=== PATIENT | female | born 2000 | race Caucasian/White ===

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

== ENCOUNTER 2018-02-11 09:14 | Emergency (ER) | payer MEDICAID ==
--- NOTE | 2018-02-11 09:46 | ER Document Report ---
ED Medical Screen (RME) - General Chief Complaint: Vag Bleeding, +preg <12wks Stated Complaint: VAGINAL BLEEDING Time Seen by Provider: 02/11/18 09:30 Notes: RME DISCLOSURE I have seen this patient as part of a Rapid Medical Evaluation and, if applicable, placed any initially appropriate orders. The patient will be seen and fully evaluated, including a full history and physical exam, by a provider ( in Main ED or Fast Track) when a room becomes available. 17-year-old female (no prior pregnancies) here with complaints of vaginal spotting and bleeding ongoing for the past 4 days. She took 3 home tests all of which were positive. She then [facility] and had a positive test there as well. She has not had any abdominal pain back pain nausea vomiting fevers chills. She wanted to come get checked out. TRAVEL OUTSIDE OF THE [place] IN LAST 30 DAYS: No - Related Data Allergies/Adverse Reactions: No Known Allergies Allergy (Unverified 07/13/17 13:00) Past Medical History - General Last Menstrual Period: 01/08/18 - Social History Frequency of alcohol use: None Drug Abuse: Marijuana Renal/ Medical History: Denies: Hx Peritoneal Dialysis Physical Exam - Vital signs Vitals: Temp Pulse Resp BP Pulse Ox 98.3 F 95 H 16 105/69 98 02/11/18 09:25 02/11/18 09:25 02/11/18 09:25 02/11/18 09:25 02/11/18 09:25 Course - Vital Signs Vital signs: Temp Pulse Resp BP Pulse Ox 98.3 F 95 H 16 105/69 98 02/11/18 09:25 02/11/18 09:25 02/11/18 09:25 02/11/18 09:25 02/11/18 09:25
[2018-02-11 10:14] LABS: ABSOLUTE EOSINOPHILS # (AUTO) 0.5 10^3/uL (0.0-0.6); ABSOLUTE LYMPHOCYTES (AUTO) 3.2 10^3/uL (0.5-4.7); ABSOLUTE MONOCYTES (AUTO) 0.7 10^3/uL (0.1-1.4); MEAN CORPUSCULAR HGB CONC 33.8 g/dL (32.0-36.0); MONOCYTES % (AUTO) 9.2 % (3-13); TOTAL CELLS COUNTED % (AUTO) 100 %
--- NOTE | 2018-02-11 10:17 | ER Document Report ---
ED GI/ - General Chief Complaint: Vag Bleeding, +preg <12wks Stated Complaint: VAGINAL BLEEDING Time Seen by Provider: 02/11/18 09:30 Mode of Arrival: Ambulatory Information source: Patient TRAVEL OUTSIDE OF THE [place] IN LAST 30 DAYS: No - HPI Patient complains to provider of: Vaginal bleeding Notes: 02/11/18 10:15 Patient is here with complaints of vaginal bleeding. The patient states that she is approximately 5 weeks . Her last normal menstrual period was January 08. This is her first . She has had positive tests at the health department. States over the last few days she has been having some vaginal bleeding. 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 She denies any abdominal pain. She denies fever. She denies nausea, vomiting, diarrhea. No dysuria or hematuria. No vaginal discharge. No rash. No chest pain or shortness of breath. She denies any other complaints at this time. - Related Data Allergies/Adverse Reactions: No Known Allergies Allergy (Unverified 07/13/17 13:00) Past Medical History - General Last Menstrual Period: 01/08/18 - Social History Smoking Status: Former Smoker Frequency of alcohol use: None Drug Abuse: Marijuana Family History: Reviewed & Not Pertinent Patient has suicidal ideation: No Patient has homicidal ideation: No Renal/ Medical History: Denies: Hx Peritoneal Dialysis Review of Systems - Review of Systems -: Yes All other systems reviewed and negative Physical Exam - Vital signs Vitals: Temp Pulse Resp BP Pulse Ox 98.3 F 95 H 16 105/69 98 02/11/18 09:25 02/11/18 09:25 02/11/18 09:25 02/11/18 09:25 02/11/18 09:25 - Notes Notes: GENERAL: alert, cooperative, nontoxic, no distress. HEAD: normocephalic, atraumatic EYES: conjunctiva pink without discharge, no external redness or swelling. EARS: no external swelling, no external redness NOSE: atraumatic, no external swelling MOUTH/THROAT: mucous membranes moist and pink, posterior pharynx without erythema, swelling, exudate. No trismus or drooling. NECK: soft, supple, full range of motion, no meningismus. CHEST: no distress, lungs clear and equal throughout. No wheezing, rales, rhonchi. CARDIAC: regular rate and rhythm, no murmur, normal capillary refill, normal pulses. No peripheral edema noted. ABDOMEN: Soft, nontender. BACK: full range of motion, no CVA tenderness. EXTREMITIES: full range of motion of all extremities. No redness, no swelling. NEURO: alert and oriented x 3, no focal deficits, full range of motion of all extremities. PYSCH: appropriate mood, affect. Patient is cooperative. SKIN: pink, warm, dry, no rash. : Performed with female dairy nutritionist at the bedside. No external lesions. Cervical office is closed. No blood within the vaginal vault. No discharge. No cervical motion tenderness. No adnexal tenderness or masses on bimanual exam. Course - Re-evaluation Re-evalutation: 02/11/18 11:47 Patient is nontoxic appearing with stable vitals. Patient is here with complaints of and vaginal bleeding. Last period was in the middle of December. This was her first . She has been seen at the health department and had a positive urine test but has not had an official OB visit. She started having some bleeding last week that has since essentially resolved. She was told to come to the ER to get this evaluated. She denies any abdominal pain. She has no abdominal tenderness on exam. There was no bleeding on vaginal exam and the cervical office was closed. Her beta- hCG is 24. This is extremely low. Most likely the patient has experienced a miscarriage although an ectopic cannot completely be excluded as her ultrasound did not show an intrauterine at this time. Patient is instructed to keep her follow-up appointment with the health department for reevaluation to assess the trending of her hCG. She was instructed to return the emergency department if she develops pelvic pain or has any worsening symptoms. Blood type is B+, RhoGam is not indicated. This point the patient can be discharged home with what is most likely a miscarriage. The patient's emergency department workup and current diagnosis were explained to the patient and or family. Follow-up instructions were provided. Medications if prescribed were discussed. Instructions for when to return to the emergency department including specific worrisome symptoms were discussed with the patient and/or family. - Vital Signs Vital signs: Temp Pulse Resp BP Pulse Ox 98.3 F 95 H 16 105/69 98 02/11/18 09:25 02/11/18 09:25 02/11/18 09:25 02/11/18 09:25 02/11/18 09:25 - Laboratory Result Diagrams: 02/11/18 09:53 02/11/18 09:53 Laboratory results interpreted by me: 02/11/18 02/11/18 02/11/18 09:53 09:53 09:53 Seg Neutrophils % 41.9 L Eosinophils % 6.1 H AST 45 H ALT 54 H Beta HCG, Quant 24.67 H Urine Blood LARGE H - Diagnostic Test Radiology reviewed: Image reviewed, Reports reviewed - Ultrasound shows no intrauterine . No acute abnormalities. Discharge - Discharge Clinical Impression: Threatened miscarriage in early Condition: Stable Disposition: HOME, SELF-CARE Instructions: Bleeding During Early ([facility]), Threatened Miscarriage ( [facility]) Additional Instructions: Follow-up with the health department as scheduled. Return to the emergency department or follow-up sooner for worsening pain, high fever, severe bleeding, persistent vomiting, or for any further concerns. Your hormone level today was 24. Your blood type is B+. Forms: Smoking Cessation Education
[2018-02-11 10:19] LABS: ABSOLUTE NEUT (AUTO) 3.2 10^3/uL (1.7-8.2); BASOPHILS % (AUTO) 0.5 % (0-2); EOSINOPHILS % (AUTO) 6.1 % (0-6); HEMATOCRIT 45.8 % (36.0-47.0); HEMOGLOBIN 15.5 g/dL (12.0-15.5); LYMPHOCYTES % (AUTO) 42.3 % (13-45); MEAN CORPUSCULAR HEMOGLOBIN 29.4 pg (27.0-33.4); MEAN CORPUSCULAR VOLUME 87 fl (80-97); PLATELET COUNT 371 10^3/uL (150-450); RED BLOOD COUNT 5.27 10^6/uL (3.72-5.28); RED CELL DISTRIBUTION WIDTH 13.3 % (11.5-14.0); SEGMENTED NEUTROPHILS % (AUTO) 41.9 % (42-78); WHITE BLOOD COUNT 7.7 10^3/uL (4.0-10.5)
[2018-02-11 10:25] LABS: BACTERIA (WET MOUNT) 3+ BACTERIA SEEN; RBCS (WET MOUNT) FEW RBCS SEEN; T.VAGINALIS (WET MOUNT) NO TRICHOMONAS SEEN; WBCS (WET MOUNT) FEW WBCS SEEN; YEAST (WET MOUNT) YEAST SEEN
[2018-02-11 10:37] LABS: APPEARANCE,URINE CLEAR; BILIRUBIN,URINE NEGATIVE (NEGATIVE); COLOR,URINE YELLOW; GLUCOSE, URINE NEGATIVE (NEGATIVE); KETONES,URINE NEGATIVE (NEGATIVE); LEUKOCYTE ESTERASE,URINE NEGATIVE (NEGATIVE); NITRITE,URINE NEGATIVE (NEGATIVE); PROTEIN,URINE NEGATIVE (NEGATIVE); URINE SPECIFIC GRAVITY 1.012; UROBILINOGEN,URINE NEGATIVE mg/dL (<2.0)
[2018-02-11 10:39] LABS: ALANINE AMINOTRANSFERASE 54 U/L (5-35); ALBUMIN 4.4 g/dL (3.7-5.6); ALKALINE PHOSPHATASE 89 U/L (50-135); ANION GAP 9 (5-19); ASPARTATE AMINO TRANSFERASE 45 U/L (5-30); BILIRUBIN,DIRECT 0.2 mg/dL (0.0-0.4); BILIRUBIN,TOTAL 0.2 mg/dL (0.2-1.3); BLOOD UREA NITROGEN 10 mg/dL (7-20); CALCIUM 10.2 mg/dL (8.4-10.2); CARBON DIOXIDE 30 mmol/L (22-30); CHLORIDE 106 mmol/L (98-107); GLUCOSE 90 mg/dL (75-110); SODIUM 144.6 mmol/L (137-145); TOTAL PROTEIN 7.3 g/dL (6.3-8.2)
--- NOTE | 2018-02-11 11:08 | RADIOLOGY REPORT (SQ) ---
EXAM DESCRIPTION: U/S OB TRANSVAGINAL W/O DOP COMPLETED DATE/TIME: 02/11/2018 10:47 am REASON FOR STUDY: bleeding, pos preg test; eval ectopic miscarriage COMPARISON: None. TECHNIQUE: Transvaginal static and realtime grayscale images acquired of the pelvis. Additional tony cted spectral and color Doppler images recorded. All images stored on PACs. BHCG: Pending. LIMITATIONS: None. FINDINGS: UTERUS: No visualized intrauterine . Minimal endometrial fluid. RIGHT ADNEXA: Normal ovary with normal vascular flow. No adnexal free fluid. No adnexal masses. LEFT ADNEXA: Normal ovary with normal vascular flow. No adnexal free fluid. No adnexal masses. FREE FLUID: None. OTHER: No other significant finding. IMPRESSION: NO VISUALIZED INTRA- OR EXTRAUTERINE . bHCG LEVEL TOO LOW TO EXPECT VISUALIZATION OF . ECTOPIC CANNOT BE EXCLUDED. FOLLOW-UP ULTRASOUND AND SERIAL BHCG LEVELS STRONGLY RECOMMENDED TO ACCURATELY ASSESS STATU S. TECHNICAL DOCUMENTATION: JOB ID: [id number] [employer]- All Rights Reserved Reading location - IP/workstation name: [email or web address]
[2018-02-11 11:50] LABS: CHLAM PCR NOT DETECTED (NOT DETECT); GON PCR NOT DETECTED (NOT DETECT)
[2018-02-11 11:56] VITALS: BP 108/64
== END 2018-02-11 11:53 | disposition home or self-care (01) ==
LOC: ER 09:14
DX: O20.0 Threatened abortion (principal); Z3A.01 Less than 8 weeks gestation of pregnancy; Z87.891 Personal history of nicotine dependence
CPT/HCPCS: 36415; 76817; 80053; 81001; 84702; 85025; 86900; 86901; 87210; 87491; 87591; 99284

== ENCOUNTER 2019-11-09 11:32 | Emergency (ER) | payer MEDICAID ==
[2019-11-09 11:42] VITALS: BP 121/85
--- NOTE | 2019-11-09 12:26 | ER Document Report ---
HPI - HPI Time Seen by Provider: 11/09/19 12:17 Pain Level: 2 Notes: Otherwise healthy 19-year-old female presenting with left ear pain over the last 2 to 3 days. She states she has tried putting peroxide in it to help with the pain. She also reports cough and congestion. Denies fevers. - CONSTITUTIONAL Constitutional: DENIES: Fever, Chills - EENT EENT: REPORTS: Sore Throat, Ear Pain - REPRODUCTIVE Reproductive: DENIES: : Past Medical History - General Information source: Patient - Social History Smoking Status: Never Smoker Chew tobacco use (# tins/day): No Frequency of alcohol use: None Drug Abuse: Marijuana Family History: Reviewed & Not Pertinent Patient has suicidal ideation: No Patient has homicidal ideation: No - Medical History Medical History: Negative Renal/ Medical History: Denies: Hx Peritoneal Dialysis Surgical Hx: Negative - Immunizations Immunizations up to date: Yes Vertical Provider Document - CONSTITUTIONAL Notes: PHYSICAL EXAMINATION: GENERAL: Well-appearing, well-nourished and in no acute distress. HEAD: Atraumatic, normocephalic. EYES: Pupils equal round extraocular movements intact, conjunctiva are normal. Bulging left TM that is also very erythematous. ENT: Nares patent with clear rhinorrhea. Oropharynx mildly erythematous but without exudates or tonsillar swelling. NECK: Normal range of motion LUNGS: No respiratory distress, lung sounds clear and equal bilaterally. Musculoskeletal: Normal range of motion NEUROLOGICAL: Normal speech, normal gait. PSYCH: Normal mood, normal affect. SKIN: Warm, Dry, normal turgor, no rashes or lesions noted. - INFECTION CONTROL TRAVEL OUTSIDE OF THE [place] IN LAST 30 DAYS: No Course - Re-evaluation Re-evalutation: Exam consistent with otitis media and upper respiratory infection. Patient will be started on appropriate medications and discharged home. - Vital Signs Vital signs: Temp Pulse Resp BP Pulse Ox 98.0 F 98 18 121/85 99 11/09/19 12:12 11/09/19 11:36 11/09/19 12:12 11/09/19 11:36 11/09/19 12:12 Discharge - Discharge Clinical Impression: Otitis media Qualifiers: Otitis media type: unspecified Chronicity: acute Qualified Code(s): H66.90 - Otitis media, unspecified, unspecified ear Condition: Stable Disposition: HOME, SELF-CARE Additional Instructions: You have been diagnosed as having an ear infection. Please take the amoxicillin as directed for 10 days. Follow-up with your primary as needed. Return if you become lethargic, have persistent vomiting, become confused, have facial swelling, worsening pain despite antibiotics, or any other symptoms that are concerning to you. You should take ibuprofen or Tylenol as needed for discomfort. Prescriptions: Amoxicillin Trihydrate [Amoxil 400 mg/5 mL Suspension] 10 ml PO TID 10 Days #1 bottle Prednisone [Deltasone 20 mg Tablet] 3 tab PO DAILY 5 Days #15 tablet
== END 2019-11-09 12:32 | disposition home or self-care (01) ==
LOC: ER 11:32
DX: H66.90 Otitis media, unspecified, unspecified ear (principal); J06.9 Acute upper respiratory infection, unspecified
CPT/HCPCS: 99282

== ENCOUNTER 2020-02-12 16:44 | Emergency (ER) | payer SELFPAY ==
[2020-02-12 16:51] VITALS: BP 130/88
[2020-02-12] MEDS ORDERED: ACETAMINOPHEN 325 MG TABLET PO ONE (17:05)
[2020-02-12] MEDS ORDERED: IBUPROFEN 600 MG TABLET PO ONE (17:05)
--- NOTE | 2020-02-12 17:10 | ER Document Report ---
HPI - HPI Time Seen by Provider: 02/12/20 16:55 Pain Level: 3 Context: Patient is a 19-year-old female who presents the emergency department with a chief complaint of right ear pain. Patient was seen back in october and was placed on amoxicillin, but did not finish her medication. Patient states that she continues to have right ear pain. Patient has had a fever. She also reports anterior cervical lymphadenopathy. She has not taken ibuprofen or Tylenol, because she states, "I do not like taking medicine." Denies any past medical history. States that she just finished her menstrual cycle. - CONSTITUTIONAL Constitutional: REPORTS: Fever. DENIES: Chills - EENT EENT: REPORTS: Sore Throat, Ear Pain. DENIES: Eye problems - NEURO Neurology: REPORTS: Headache. DENIES: Weakness, Vision blurred, Dizzinesss / Vertigo - RESPIRATORY Respiratory: DENIES: Coughing - GASTROINTESTINAL Gastrointestinal: DENIES: Abdominal Pain - REPRODUCTIVE LMP: 02/08/2020 Reproductive: DENIES: : - MUSCULOSKELETAL Musculoskeletal: DENIES: Extremity pain - DERM Skin Color: Normal Skin Problems: None Past Medical History - General Information source: Patient - Social History Smoking Status: Never Smoker Chew tobacco use (# tins/day): No Frequency of alcohol use: Occasional Drug Abuse: None Family History: Reviewed & Not Pertinent Patient has suicidal ideation: No Patient has homicidal ideation: No Renal/ Medical History: Denies: Hx Peritoneal Dialysis Past Surgical History: Reports: Hx Oral Surgery - wisdom - Immunizations Immunizations up to date: Yes Vertical Provider Document - CONSTITUTIONAL Agree With Documented VS: Yes Exam Limitations: No Limitations General Appearance: No Apparent Distress - INFECTION CONTROL TRAVEL OUTSIDE OF THE [place] IN LAST 30 DAYS: No - HEENT HEENT: Atraumatic, Normocephalic, PERRLA, Pharyngeal Tenderness, Pharyngeal Erythema, Tympanic Membrane Red, Tympanic Membrane Bulging. negative: Conjuctival Injection, Pharyngeal Exudate Notes: Edema and erythema noted to external auditory canal on the right side. - NECK Neck: Normal Inspection, Supple, Lymphadenopathy-Left, Lymphadenopathy-Right - RESPIRATORY Respiratory: Breath Sounds Normal, No Respiratory Distress - CARDIOVASCULAR Pulses: Normal: Radial - MUSCULOSKELETAL/EXTREMETIES Musculoskeletal/Extremeties: FROM - NEURO Level of Consciousness: Awake, Alert, Appropriate Motor/Sensory: No Motor Deficit, No Sensory Deficit - DERM Integumentary: Warm, Dry, No Rash Course - Re-evaluation Re-evalutation: 02/12/20 17:10 Patient's physical exam is consistent with otitis media and otitis externa. No mastoid tenderness noted. Patient will be placed on Augmentin, she started amoxicillin, but did not finish it. Patient will also be started on Ciprodex drops. She will follow-up with her primary care provider. Follow-up precautions were given. Verbal discharge instructions were given to the patient. They verbalized understanding. They are stable for discharge. - Vital Signs Vital signs: Temp Pulse Resp BP Pulse Ox 100.0 F 124 H 20 130/88 H 96 02/12/20 16:49 02/12/20 16:49 02/12/20 16:49 02/12/20 16:49 02/12/20 16:49 Discharge - Discharge Clinical Impression: Ear pain Qualifiers: Laterality: right Qualified Code(s): H92.01 - Otalgia, right ear Otitis media Qualifiers: Otitis media type: suppurative Chronicity: acute Laterality: right Recurrence: recurrent Spontaneous tympanic membrane rupture: without spontaneous rupture Qualified Code(s): H66.004 - Acute suppurative otitis media without spontaneous rupture of ear drum, recurrent, right ear Otitis externa Qualifiers: Otitis externa type: unspecified type Chronicity: acute Laterality: right Qualified Code(s): H60.501 - Unspecified acute noninfective otitis externa, right ear Condition: Stable Disposition: HOME, SELF-CARE Additional Instructions: You are seen today in the emergency department for ear pain. Please take your antibiotics as prescribed. Take ibuprofen 600 mg and Tylenol 1000 mg every 6 hours for your pain or fever. Follow-up with your primary care provider in 1 week regards to this visit. Place the eardrops in your right ear as prescribed. Prescriptions: Amoxicillin/Potassium Clav [Augmentin 875-125 Tablet] 1 tab PO BID #20 tab Ciprofloxacin HCl/Dexameth [Ciprodex Otic Suspension 7.5 ml Bottle] 4 drop OT BID 7 Days #1 bottle
== END 2020-02-12 17:17 | disposition home or self-care (01) ==
LOC: ER 16:44
DX: H66.004 Acute suppurative otitis media without spontaneous rupture of ear drum, recurrent, right ear (principal); H60.501 Unspecified acute noninfective otitis externa, right ear; J02.9 Acute pharyngitis, unspecified; R51 Headache
CPT/HCPCS: 99282

== ENCOUNTER 2020-07-31 09:20 | Emergency (ER) | payer MEDICAID ==
--- NOTE | 2020-07-31 11:19 | ER Document Report ---
HPI - HPI Patient complains to provider of: Ear pain Time Seen by Provider: 07/31/20 10:34 Onset/Duration: Persistent Quality of pain: Achy Pain Level: 3 Context: Patient presents 16 weeks G2, P0 complain of cough for the past 3 days. Patient complains of right ear pain. Patient denies any fever. Patient reports scratchy throat. Associated Symptoms: Nonproductive cough, Earache, Rhinnorhea. denies: Fever, Nausea Exacerbated by: Denies Relieved by: Denies Similar symptoms previously: No Recently seen / treated by doctor: No - ROS ROS below otherwise negative: Yes Systems Reviewed and Negative: Yes All other systems reviewed and negative - CONSTITUTIONAL Constitutional: DENIES: Fever, Chills - EENT EENT: REPORTS: Ear Pain, Nasal Drainage-Clear, Congestion - RESPIRATORY Respiratory: REPORTS: Coughing - GASTROINTESTINAL Gastrointestinal: DENIES: Abdominal Pain, Patient vomiting, Diarrhea - REPRODUCTIVE Reproductive: REPORTS: : - DERM Skin Color: Normal Skin Problems: None Past Medical History - General Information source: Patient - Social History Smoking Status: Never Smoker Chew tobacco use (# tins/day): No Frequency of alcohol use: None Drug Abuse: Marijuana Occupation: [employer] Lives with: Family Family History: Reviewed & Not Pertinent - Medical History Medical History: Negative Renal/ Medical History: Denies: Hx Peritoneal Dialysis Past Surgical History: Reports: Hx Oral Surgery - wisdom - Immunizations Immunizations up to date: Yes Vertical Provider Document - CONSTITUTIONAL Agree With Documented VS: Yes Exam Limitations: No Limitations General Appearance: WD/WN, No Apparent Distress - INFECTION CONTROL TRAVEL OUTSIDE OF THE [place] IN LAST 30 DAYS: No - HEENT HEENT: Atraumatic, Normocephalic. negative: Pharyngeal Exudate, Pharyngeal Tenderness, Pharyngeal Erythema, Tympanic Membrane Red, Tympanic Membrane Bulging Notes: Clear rhinorrhea, normal TMs bilaterally - NECK Neck: Normal Inspection, Supple - RESPIRATORY Respiratory: Breath Sounds Normal, No Respiratory Distress - CARDIOVASCULAR Cardiovascular: Regular Rate, Regular Rhythm, No Murmur - GI/ABDOMEN Gastrointestinal: Abdomen Soft, Abdomen Non-Tender, No Organomegaly - BACK Back: Normal Inspection. negative: CVA Tenderness-Right, CVA Tenderness-Left - MUSCULOSKELETAL/EXTREMETIES Musculoskeletal/Extremeties: SONYA ALDRICH - NEURO Level of Consciousness: Awake, Alert, Appropriate Motor/Sensory: No Motor Deficit - DERM Integumentary: Warm, Dry, No Rash Course - Re-evaluation Re-evalutation: 07/31/20 The patient was evaluated during the global Covid 19 pandemic, and that diagnosis was suspected/considered upon their initial presentation. Their evaluation, treatment and testing was consistent with current guidelines for patients who present with complaints or symptoms that may be related to Covid 19. Patient presents with upper respiratory symptoms worrisome for possible Covid 19. Patient does not have emergency worrying symptoms such as difficulty breathing, shortness of breath, chest pain, pressure, confusion or cyanosis. Patient appears suitable for discharge as they are not of an advanced age, do not have any chronic medical conditions such as diabetes, CAD, immune deficiency, chronic lung disease or chronic kidney disease. Patient's vital signs are stable and patient is nontoxic in appearance. Good return precautions have been discussed with patient, patient verbalized understanding and is agreeable with discharge plan of care at this time. - Vital Signs Vital signs: Temp Pulse Resp BP Pulse Ox 98.5 F 103 H 18 117/67 99 07/31/20 09:25 07/31/20 09:25 07/31/20 09:25 07/31/20 09:25 07/31/20 09:25 - Laboratory Laboratory results interpreted by me: 07/31/20 12:48 Labs- All tests 24 hr 07/31/20 11:25 Group A Strep Rapid NEGATIVE - Diagnostic Test Radiology reviewed: Reports reviewed Discharge - Discharge Clinical Impression: Encounter for screening laboratory testing for COVID-19 virus Upper respiratory infection Qualifiers: URI type: unspecified URI Qualified Code(s): J06.9 - Acute upper respiratory infection, unspecified Condition: Stable Disposition: HOME, SELF-CARE Instructions: COVID-19 Guidance for Persons Under Investigation, Acetaminophen, Upper Respiratory Illness ([facility]) Additional Instructions: Return immediately for any new or worsening symptoms Followup with your primary care provider, call tomorrow to make a followup appointment Forms: Return to Work Referrals: [facility] [Provider Group] - Follow up as needed
[2020-07-31] MEDS: ACETAMINOPHEN 325 MG TABLET PO ONE ×2 (11:21→11:43)
--- NOTE | 2020-07-31 12:07 | RADIOLOGY REPORT (SQ) ---
EXAM DESCRIPTION: CHEST SINGLE VIEW IMAGES COMPLETED DATE/TIME: 07/31/2020 11:18 am REASON FOR STUDY: cough COMPARISON: None. EXAM PARAMETERS: NUMBER OF VIEWS: One view. TECHNIQUE: Single frontal radiographic view of the chest acquired. RADIATION DOSE: NA LIMITATIONS: None. FINDINGS: LUNGS AND PLEURA: No opacities, masses or pneumothorax. No pleural effusion. MEDIASTINUM AND HILAR STRUCTURES: No masses. Contour normal. HEART AND VASCULAR STRUCTURES: Heart normal in size. Normal vasculature. BONES: No acute findings. HARDWARE: None in the chest. OTHER: No other significant finding. IMPRESSION: NO ACUTE RADIOGRAPHIC FINDING IN THE CHEST. TECHNICAL DOCUMENTATION: JOB ID: [id number] 2010 [employer]- All Rights Reserved Reading location - IP/workstation name: [email or web address]
[2020-07-31 13:14] VITALS: BP 117/75
== END 2020-07-31 13:12 | disposition home or self-care (01) ==
LOC: ER 09:20
DX: O99.512 Diseases of the respiratory system complicating pregnancy, second trimester (principal); J06.9 Acute upper respiratory infection, unspecified; J34.89 Other specified disorders of nose and nasal sinuses; O26.892 Other specified pregnancy related conditions, second trimester; R05 Cough; R09.89 Other specified symptoms and signs involving the circulatory and respiratory systems; H92.01 Otalgia, right ear; O99.322 Drug use complicating pregnancy, second trimester; F12.10 Cannabis abuse, uncomplicated; Z20.828 Contact with and (suspected) exposure to other viral communicable diseases; Z3A.16 16 weeks gestation of pregnancy
CPT/HCPCS: 99284; 87070; 87880; 87635; 71045; C9803